=== PATIENT | female | born 1955 | race Caucasian/White ===

== ENCOUNTER 2022-09-25 06:47 | Day surgery (SDC) | payer MEDICARE, SELFPAY ==
[2022-09-20 14:07] VITALS: BMI 23.8
[2022-09-20 14:23] VITALS: BMI 23.8
--- NOTE | 2022-09-22 08:17 | MHC.SHP ---
Pre-Procedural Eval Section A Date of Service: 09/22/22 The patient is an INPATIENT: No Changes since office visit: No Cold of Flu in the past 2 weeks, No New Medical Problems, No Changes in Medication and No Patient answered all questions The History & Physical has been completed within 30 days and I have reviewed it.: Yes Section B Chief Complaint: Age-related nuclear cataract, left eye Allergies: Allergies Allergy/AdvReac Type Severity Reaction Status Date / Time acetaminophen Allergy Hypotension Verified 09/20/22 14:12 [From Tylenol-Codeine] codeine Allergy Hypotension Verified 09/20/22 14:12 [From Tylenol-Codeine] Plan Diagnosis/Plan: Unchanged I have reviewed the history and physical and performed a pertinent physical examination on my patient. No changes have occurred unless specified. Time Spent With Patient Time: Total time managing care of this patient today ____ minutes.
--- NOTE | 2022-09-22 09:26 | HO.ANESPROP2 ---
Documented by User: Hermelinda Fernando NP 09/22/22 09:26 HPI - Anesthesia Eval Consult details Narrative: 67yo F for Left Cataract Extraction IOL Insertion PCP cleared No previous cataract PMFSH Past Medical History Medical History Diabetes Endometriosis HTN (hypertension) Hyperlipidemia Murmur Patellar tendon rupture Pelvic mass in female Syncopal episodes Surgical History Surgical History History of bunionectomy History of carpal tunnel release History of hysterectomy History of left oophorectomy Hx of appendectomy Hx of exploratory laparotomy Social History Social History Are you a primary property caretaker to a significant other at home: No Do you presently have visiting nurse or other home services: No Patient Tobacco Use Status: Current everyday Tobacco user Tobacco use type: Cigarette Cigarettes Per Day: 5 Smoked in Last 30 Days: Yes Use of substances other than those prescribed or required for medical reasons: No Have you been hit, kicked, punched, or otherwise hurt by someone within the past year? If so, by whom?: No Advance Directives: No Advance Directives Information Provided: Yes Advance Directives on File: No Recently lost weight without trying: No Eating poorly because of decreased appetite: No Nutrition Risks: No Nutritional Risk Poor oral hygiene: No Meds Allergies Allergy/AdvReac Type Severity Reaction Status Date / Time acetaminophen Allergy Hypotension Verified 09/20/22 14:12 [From Tylenol-Codeine] codeine Allergy Hypotension Verified 09/20/22 14:12 [From Tylenol-Codeine] Home Medications Medication Instructions Recorded Confirmed Last Taken Type amlodipine 2.5 mg tablet 2.5 mg PO DAILY 09/20/22 09/20/22 09/24/22 History aspirin 81 mg chewable tablet 81 mg PO DAILY 09/20/22 09/20/22 09/24/22 History hydrochlorothiazide 25 mg tablet 25 mg PO DAILY 09/20/22 09/20/22 09/24/22 History losartan 50 mg tablet 50 mg PO DAILY 09/20/22 09/20/22 09/24/22 History metformin 500 mg tablet,extended 1,000 mg PO BID 09/20/22 09/20/22 09/23/22 History release 24 hr rosuvastatin 20 mg tablet 20 mg PO DAILY 09/20/22 09/20/22 09/24/22 History Exam Exam Date and Time: September 22, 2022925 Height,Weight and Vital Signs: Height 5 ft 7 in Weight 68.946 kg Assessment and Plan Assessment Anesthesia Assessment: Chart Reviewed Documented by User: Austin Strong MD 09/25/22 09:56 PMF Past Medical History Medical History Diabetes Endometriosis HTN (hypertension) Hyperlipidemia Murmur Patellar tendon rupture Pelvic mass in female Syncopal episodes Family History Family history of problems with anesthesia: No Surgical History Surgical History History of bunionectomy History of carpal tunnel release History of hysterectomy History of left oophorectomy Hx of appendectomy Hx of exploratory laparotomy History of Problems with Anesthesia: No Social History Social History Are you a primary property caretaker to a significant other at home: No Do you presently have visiting nurse or other home services: No Patient Tobacco Use Status: Current everyday Tobacco user Tobacco use type: Cigarette Cigarettes Per Day: 5 Smoked in Last 30 Days: Yes Use of substances other than those prescribed or required for medical reasons: No Have you been hit, kicked, punched, or otherwise hurt by someone within the past year? If so, by whom?: No Advance Directives: No Advance Directives Information Provided: Yes Advance Directives on File: No Recently lost weight without trying: No Eating poorly because of decreased appetite: No Nutrition Risks: No Nutritional Risk Poor oral hygiene: No Meds Allergies Allergy/AdvReac Type Severity Reaction Status Date / Time acetaminophen Allergy Hypotension Verified 09/20/22 14:12 [From Tylenol-Codeine] codeine Allergy Hypotension Verified 09/20/22 14:12 [From Tylenol-Codeine] Home Medications Medication Instructions Recorded Confirmed Last Taken Type amlodipine 2.5 mg tablet 2.5 mg PO DAILY 09/20/22 09/20/22 09/24/22 History aspirin 81 mg chewable tablet 81 mg PO DAILY 09/20/22 09/20/22 09/24/22 History hydrochlorothiazide 25 mg tablet 25 mg PO DAILY 09/20/22 09/20/22 09/24/22 History losartan 50 mg tablet 50 mg PO DAILY 09/20/22 09/20/22 09/24/22 History metformin 500 mg tablet,extended 1,000 mg PO BID 09/20/22 09/20/22 09/23/22 History release 24 hr rosuvastatin 20 mg tablet 20 mg PO DAILY 09/20/22 09/20/22 09/24/22 History Exam Airway Mallampati Class: II TM Dist: >3cm Neck ROM: Full Loose/Missing/Broken Teeth: Yes Heart: rrr+[id number] Lungs: cta b/l Assessment and Plan Assessment Anesthesia Assessment: Anesthesia Plan Discussed Final Anesthetic Review Family History of Problems with Anesthesia: No History of Problems with Anesthesia: No NPO: Yes ASA Class: III Final Preanesthetic Review: No Changes in Pt Med Stat, Meds/Allgs Chart Reviewed, Consent Obtained/Reviewed and Anes Risks/Benef Reviewed Patient Risk: Intermediate Procedure Risk: Low Assessment/Block/Sedation in SS: Assess/Block/Sedation-SS Anesthetic Plan Anesthetic Plan: MAC: and Agree w/ Assess. and Plan Disposition: Standard PACU
[2022-09-25 06:52] VITALS: BP 115/82; PULSE 79; RESP 20; TEMP 37.1; O2SAT 98
[2022-09-25] MEDS: Cyclopentolate 1 % Ophth Sol 2 ML DRPBTL 1 DROP EYE-LEFT ×3 (07:08→07:09)
[2022-09-25] MEDS: Tropicamide 1 % Ophth Sol 3 ML BTL 1 DROP EYE-LEFT ×3 (07:08→07:09)
[2022-09-25] MEDS: Tetracaine HCl/PF 0.5% Oph Sol 4 ML DROPS 1 DROP EYE-LEFT (07:08)
[2022-09-25] MEDS: Phenylephrine HCL 2.5% Oph SoL 2 ML BOTTLE 1 DROP EYE-LEFT ×3 (07:09)
[2022-09-25] MEDS: Ketorolac Tromethamine 0.5% Op 5 ML DROPS 1 DROP EYE-LEFT ×3 (07:09)
--- NOTE | 2022-09-25 08:55 | HO.PNOPHT ---
Ophthalmology Procedure Procedure Date of Service: 09/25/22 Ophthalmology Viscoelastic: Healpeg Etiennet Dual Pack Pro Ophthalmology Lenses: TECNIS [id number] (22.5) Procedure Notes: PREOPERATIVE DIAGNOSIS: Decreased visual acuity left eye secondary to cataract POSTOPERATIVE DIAGNOSIS: Same PROCEDURE: Left cataract extraction with intraocular lens insertion SURGEON: Salomon Whipple M.D. ANESTHESIA: Topical ESTIMATED BLOOD LOSS: None COMPLICATIONS: None After obtaining informed consent, the patient was brought to the operation room suite and placed in the supine position. After adequate sedation per anesthesia, topical drops of Tetracaine were given to the left eye. The eye was then prepped and draped in the usual sterile fashion. The operating room microscope was then positioned over the operative eye and a lid speculum placed. A paracentesis was created followed by instillation of MPF Lidocaine 1%. Viscoelastic was then instilled into the anterior chamber. A three plane incision was then created temporally, utilizing a 2.85 mm keratome. Capsulotomy forceps were then utilized to create a circular tear capsulotomy. Hydrodissection and hydrodelineation were carried out until adequate mobilization of the nucleus occurred. Phacoemulsification was then utilized to remove the dense central nucleus followed by removal of the cortical material utilizing the automated aspiration irrigation unit. Viscoat elastic was instilled into the posterior capsular bag followed by placement of a posterior chamber intraocular lens without difficulty. The residual Viscoat elastic was then removed utilizing the automated IA machine. The wound was check and found to be watertight. The patient tolerated the procedure well and the lid speculum was removed. Intracameral injection of Vigamox 0.1 mL followed by a subtenon injection of Kenalog-40 0.2 mL were administered. The patient will be seen in the a.m.
[2022-09-25 09:24] VITALS: BP 120/73; PULSE 74; RESP 16; TEMP 37.2; O2SAT 99
== END 2022-09-25 09:29 | disposition home or self-care (01) ==
PROVIDERS: PCP Nurse Practitioner Family; Visit Provider Ophthalmology
PROC: (CPT 66985; principal; 2022-09-25 09:20)
DX: H25.12 Age-related nuclear cataract, left eye (principal); H54.7 Unspecified visual loss; H18.413 Arcus senilis, bilateral; H11.153 Pinguecula, bilateral; I10 Essential (primary) hypertension; E11.9 Type 2 diabetes mellitus without complications; E78.00 Pure hypercholesterolemia, unspecified; M19.90 Unspecified osteoarthritis, unspecified site; Z79.84 Long term (current) use of oral hypoglycemic drugs; Z79.899 Other long term (current) drug therapy; Z88.8 Allergy status to other drugs, medicaments and biological substances; F17.210 Nicotine dependence, cigarettes, uncomplicated
CPT/HCPCS: 66984; J3301; V2632

== ENCOUNTER 2022-10-09 06:23 | Day surgery (SDC) | payer MEDICARE, SELFPAY ==
[2022-09-21 08:01] VITALS: BMI 23.8
--- NOTE | 2022-10-05 13:09 | MHC.SHP ---
Pre-Procedural Eval Section A Date of Service: 10/05/22 The patient is an INPATIENT: No Changes since office visit: No Cold of Flu in the past 2 weeks, No New Medical Problems, No Changes in Medication and No Patient answered all questions The History & Physical has been completed within 30 days and I have reviewed it.: Yes Section B Chief Complaint: Age-related nuclear cataract, right eye Allergies: Allergies Allergy/AdvReac Type Severity Reaction Status Date / Time acetaminophen Allergy Hypotension Verified 09/20/22 14:12 [From Tylenol-Codeine] codeine Allergy Hypotension Verified 09/20/22 14:12 [From Tylenol-Codeine] Plan Diagnosis/Plan: Unchanged I have reviewed the history and physical and performed a pertinent physical examination on my patient. No changes have occurred unless specified. Time Spent With Patient Time: Total time managing care of this patient today ____ minutes.
[2022-10-09 06:36] VITALS: BP 119/73; PULSE 84; RESP 16; TEMP 36.3; O2SAT 99
[2022-10-09] MEDS: Tetracaine HCl/PF 0.5% Oph Sol 4 ML DROPS 1 DROP EYE-RIGHT (06:47)
[2022-10-09] MEDS: Cyclopentolate 1 % Ophth Sol 2 ML DRPBTL 1 DROP EYE-RIGHT ×3 (06:48→07:05)
[2022-10-09] MEDS: Ketorolac Tromethamine 0.5% Op 5 ML DROPS 1 DROP EYE-RIGHT ×3 (06:52→07:09)
[2022-10-09] MEDS: Phenylephrine HCL 2.5% Oph SoL 2 ML BOTTLE 1 DROP EYE-RIGHT ×3 (06:54→07:11)
--- NOTE | 2022-10-09 08:02 | HO.PNOPHT ---
Ophthalmology Procedure Procedure Date of Service: 10/09/22 Ophthalmology Viscoelastic: Ladi Etiennet Dual Pack Pro Ophthalmology Lenses: TECNAHID [id number] (22) Procedure Notes: PREOPERATIVE DIAGNOSIS: Decreased visual acuity right eye secondary to cataract POSTOPERATIVE DIAGNOSIS: Same PROCEDURE: Right cataract extraction with intraocular lens insertion SURGEON: Salomon Whipple M.D. ANESTHESIA: Topical ESTIMATED BLOOD LOSS: None COMPLICATIONS: None After obtaining informed consent, the patient was brought to the operating room suite and placed in the supine position. After adequate sedation per anesthesia, topical drops of Tetracaine were given to the right eye. The eye was then prepped and draped in the usual sterile fashion. The operating room microscope was then positioned over the operative eye and a lid speculum placed. A paracentesis was created. Viscoelastic was then instilled into the anterior chamber. A three plane incision was then created temporally, utilizing a 2.85 mm keratome. Capsulotomy forceps were then utilized to create a circular tear capsulotomy. Hydrodissection and hydrodelineation were carried out until adequate mobilization of the nucleus occurred. Phacoemulsification was then utilized to remove the dense central nucleus followed by removal of the cortical material utilizing the automated aspiration irrigation unit. Viscoelastic was instilled into the posterior capsular bag followed by placement of a posterior chamber intraocular lens without difficulty. The residual Viscoelastic was then removed utilizing the automated IA machine. The wound was checked and found to be watertight. The patient tolerated the procedure well and the lid speculum was removed. Intracameral injection of Vigamox 0.1 mL followed by a subtenon injection of Kenalog-40 0.2 mL were administered. The patient will be seen in the a.m.
[2022-10-09 08:32] VITALS: BP 139/85; PULSE 85; RESP 18; TEMP 37; O2SAT 100
== END 2022-10-09 08:36 | disposition home or self-care (01) ==
PROVIDERS: PCP Nurse Practitioner Family; Visit Provider Ophthalmology
PROC: (CPT 66985; principal; 2022-10-09 08:10)
DX: H25.11 Age-related nuclear cataract, right eye (principal); H54.7 Unspecified visual loss; H18.413 Arcus senilis, bilateral; H11.153 Pinguecula, bilateral; H43.399 Other vitreous opacities, unspecified eye; I10 Essential (primary) hypertension; E11.9 Type 2 diabetes mellitus without complications; E78.00 Pure hypercholesterolemia, unspecified; M19.90 Unspecified osteoarthritis, unspecified site; Z79.84 Long term (current) use of oral hypoglycemic drugs; Z79.899 Other long term (current) drug therapy; Z88.8 Allergy status to other drugs, medicaments and biological substances; F17.210 Nicotine dependence, cigarettes, uncomplicated
CPT/HCPCS: 66984; J3301; V2632

== ENCOUNTER 2024-07-14 09:24 | Outpatient (REF) | payer MEDICARE, SELFPAY ==
[2024-07-14 09:30] VITALS: BP 145/82; PULSE 81; RESP 16; TEMP 36.3; O2SAT 99; BMI 22.3
--- OUTSIDE RECORDS SUMMARY | 2024-07-14 10:08 | XMS_ITS | Encounter Summary ---
Author Organization [employer] Address [address] [facility] [address] [place] [address] Care Team Providers Care Behavioral Health Case Manager Name Role Phone Adri Oliver Primary Care Provider Unavailable Jaelyn Kaufman Unavailable Unavailable Inactive/Transferred Primary Care Provider Unava ilable Encounter Details Date Type Department Care Team (Latest Contact Info) Description 04/19/2020 [facility]VERSION[facility] Dental, Provider, DDS Social History Tobacco Use Types Packs/Day Years Used Date Smoking Tobacco: Never Assessed Comments Unknown Sex and Gender Information Value Date Recorded Sex Assigned at Female 12/06/2022 11:41 AM EDT Legal Sex Female 5:35 PM EDT Gender Identity Female 12/06/2022 11:41 AM EDT Sexual Orientation Choose not to disclose 2022 8:25 AM EST documented as of this encounter Plan of Treatment Not on file documented as of this encounter Visit Diagnoses Not on filedocumented in this encounter Care Teams Behavioral Health Case Manager Relationship Specialty Start Date End Date Adri Oliver FNP PCP - General Family Medicine 08/06/22 04/20/24 Inactive/Transferred PCP - General 04/21/24 04/21/24 Jaelyn Kaufman Community Health Worker 08/07/22 documented as of this encounter
--- OUTSIDE RECORDS SUMMARY | 2024-07-14 10:08 | XMS_ITS | Encounter Summary ---
Author Organization [employer] Address [address] [facility] [address] [place] [address] Care Team Providers Care Dye House Vat Worker Name Role Phone Adri Oliver Primary Care Provider Unavailable Jaelyn Kaufman Unavailable Unavailable Inactive/Transferred Primary Care Provider Unava ilable Encounter Details Date Type Department Care Team (Latest Contact Info) Description 03/21/2019 [facility]VERSION[facility] Dental, Provider, DDS Social [...] on filedocumented in this encounter Care Teams Dye House Vat Worker Relationship Specialty Start Date End Date Adri Oliver FNP PCP - General Family Medicine 08/06/22 04/20/24 Inactive/Transferred PCP - General 04/21/24 04/21/24 Jaelyn Kaufman Community Health Worker 08/07/22 documented as of this encounter
--- OUTSIDE RECORDS SUMMARY | 2024-07-14 10:08 | XMS_ITS | Encounter Summary ---
Author Organization [employer] Address [address] [facility] [address] [place] [address] Care Team Providers Care County Agricultural Agent Name Role Phone Adri Oliver Primary Care Provider Unavailable Jaelyn Kaufman Unavailable Unavailable Inactive/Transferred Primary Care Provider Unava ilable Encounter Details Date Type Department Care Team (Latest Contact Info) Description 09/17/2018 [facility] CONVERSION[facility] Dental, Provider, DDS Social [...] on filedocumented in this encounter Care Teams County Agricultural Agent Relationship Specialty Start Date End Date Adri Oliver FNP PCP - General Family Medicine 08/06/22 04/20/24 Inactive/Transferred PCP - General 04/21/24 04/21/24 Jaelyn Kaufman Community Health Worker 08/07/22 documented as of this encounter
--- OUTSIDE RECORDS SUMMARY | 2024-07-14 10:08 | XMS_ITS | Encounter Summary ---
Author Organization [facility] Address [address] [place] [address] Phone Care Team Providers Care Clinical Specialist Name Role Phone Adri Oliver Primary Care Provider Encounter Details Date Type Department Care Team (Late st Contact Info) Description 05/09/2024 Documentation Only [facility] [address] [place] [address] Rachele Glass [place] [address] [place] [phone] Social History Tobacco Use Types Packs/Day Years Used Date Smoking Tobacco: Never Assessed Comments Unknown Sex and Gender Information Value Date Recorded Sex Assigned at Not on file Legal Sex Female 12:36 PM EST Gender Identity Not on file Sexual Orientation Not on file documented as of this encounter Plan of Treatment Upcoming Encounters Date Type Department Care Team (Late st Contact Info) Description 09/19/2024 1:30 PM EDT Office Visit [facility] [address] [place] [address] Monroe Sandoval DO [address] [place] [address] [place] [address] documented as of this encounter Visit Diagnoses Not on filedocumented in this encounter Care Teams Clinical Specialist Relationship Specialty Start Date End Date Adri Oliver FNP [address] [place], [place] [phone] PCP - General Nurse Practitioner 05/08/24 documented as of this encounter
--- OUTSIDE RECORDS SUMMARY | 2024-07-14 10:08 | XMS_ITS | Encounter Summary ---
Author Organization [employer] Address [address] [facility] [address] [place] [address] Care Team Providers Care Emr Trainer Name Role Phone Adri Oliver Primary Care Provider Unavailable Jaelyn Kaufman Unavailable Unavailable Inactive/Transferred Primary Care Provider Unava ilable Encounter Details Date Type Department Care Team (Latest Contact Info) Description 10/28/2021 Abstract [facility] Dental, Provider, DDS Social [...] on filedocumented in this encounter Care Teams Emr Trainer Relationship Specialty Start Date End Date Adri Oliver FNP PCP - General Family Medicine 08/06/22 04/20/24 Inactive/Transferred PCP - General 04/21/24 04/21/24 Jaelyn Kaufman Community Health Worker 08/07/22 documented as of this encounter
--- OUTSIDE RECORDS SUMMARY | 2024-07-14 10:08 | XMS_ITS | Encounter Summary ---
Author Organization [facility] Address [address] [place] [address] Phone Care Team Providers Care Photography Coordinator Name Role Phone Adri Oliver Primary Care Provider Encounter Details Date Type Department Care Team (Late st Contact Info) Description 05/08/2024 Documentation Only [facility] [address] [place] [address] Rachele Glass [place] [address] [place] [phone] Social History Tobacco Use Types Packs/Day Years [...] Visit [facility] [address] [place] [address] Monroe Sandoval DO [address] [place] [address] [place] [address] documented as of this encounter Visit Diagnoses Not on filedocumented in this encounter Care Teams Photography Coordinator Relationship Specialty Start Date End Date Adri Oliver FNP [address] [place], [place] [phone] PCP - General Nurse Practitioner 05/08/24 documented as of this encounter
--- OUTSIDE RECORDS SUMMARY | 2024-07-14 10:08 | XMS_ITS | Clinical Summary ---
Author Organization [facility] Address [address] [id number] Care Team Providers Care Green Building Engineer Name Role Phone Beny Menendez Primary Care Provider [phone] Allergies Active Allergy Reactions Criticality Noted Date Comments Codeine 12/23/2011 Shellfish Allergy 12/23/2011 Acetaminophen-Codeine 12/23/2011 Medications * This document contains information received from the source organization and may not represent a complete record from that organization. No known medications Active Problems No known active problems Family History Medical History Relation Name Comments Cancer - Breast Mother AGE LATE 50' S Relation Name Status Comments Mother Social History Tobacco Use Types Packs/Day Years Used Date Smoking Tobacco: Every Day Alcohol Use Standard Drinks/Week Comments Not Asked 0 (1 standard drink = 0.6 oz pur e alcohol) Comments No Sex and Gender Information Value Date Recorded Sex Assigned at Not on file Legal Sex Female 6:55 PM EDT Gender Identity Not on file Sexual Orientation Not on file Plan of Treatment Health Maintenance Due Date Last Done Comments Hepatitis C Screening 1955 DTaP/Tdap/Td (1 - Tdap) 1975 Pneumococcal 50+ years (1 of 1 - PCV) 2007 Zoster (Shingrix) (1 of 2) 2007 Mammogram/Breast Imaging 02/28/2013 012, 2011, 10/05/2009, Additional history exists Bone Density 2022 COVID-19 Vaccine ( - 2023- season) 2024 Influenza (#1) 2024 RSV (1 - 1-dose 75+ series) 02/15/2032 HPV Vaccine Aged Out No longer eligi ble based on patient's age to complete this topic Hep A Aged Out No longer eligi ble based on patient's age to complete this topic Hep B Aged Out No longer eligi ble based on patient's age to complete this topic Hib Aged Out No longer eligi ble based on patient's age to complete this topic Meningococcal ACWY Aged Out No longer eligible based on patient's age to complete this topic Pap Smear Discontinued Zoster (Zostavax) Discontinued Procedures * Due to [place] CIBDO law, this organization might not be sharing negative HIV tests. Procedure Name Priority Date/Time Associated Diagnosis Comments MAMMOGRAM SCREENING , BILATERAL FC Routine 02/29/2012 1:11 PM EDT Other screening mammogram from Last 3 Months or Most Recently Relevant to Health Maintenance Results * Due to [place] CIBDO law, this organization might not be sharing negative HIV tests. * MAMMOGRAM SCREENING , BILATERAL FC (02/29/2012 1:11 PM EDT) LETTER SENT [facility] [id number]) Anatomical Region Laterality Modality BREAST Bilateral Mammography 02/29/2012 4:28 PM EDT Narrative 02/29/2012 4:28 PM EDT EXAMINATION: SCREENING DIGITAL BILATERAL MAMMOGRAM February ??2011 TECHNIQUE: ??Craniocaudal and mediolateral oblique views are performed. This mammogram was interpreted with the assistance of a computer aided detection CAD device. FAMILY HISTORY: ??Mother COMPARISON: ??2005 2008 2009 2010 COMPOSITION: ??Heterogeneous elements decreasing sensitivity and accuracy, possibly obscuring visualization of small masses. FINDINGS: No suspicious dominant mass lesions, suspicious microcalcifications, or areas of unexplained architectural distortion are seen. IMPRESSION: No evidence of malignancy. RESULTS COMMUNICATED TO PATIENT: In a letter A letter A in lay language describing the results will follow this report. The FDA, in accordance with the Mammography Quality Standards Act, requires that this be sent to the patient by the interpreting radiologist. BI-RADS Category 1:Negative *#ANB#* Procedure Note Enedelia Heredia MD - 02/29/2012 EXAMINATION: SCREENING DIGITAL BILATERAL MAMMOGRAM February 29 2012 TECHNIQUE: Craniocaudal and mediolateral oblique views are performed. This mammogram was interpreted with the assistance of a computer aided detection CAD device. FAMILY HISTORY: Mother COMPARISON: 2005 2008 2009 2010 COMPOSITION: Heterogeneous elements decreasing sensitivity and accuracy, possibly obscuring visualization of small masses. FINDINGS: No suspicious dominant mass lesions, suspicious microcalcifications, or areas of unexplained architectural distortion are seen. IMPRESSION: No evidence of malignancy. RESULTS COMMUNICATED TO PATIENT: In a letter A letter A in lay language describing the results will follow this report. The FDA, in accordance with the Mammography Quality Standards Act, requires that this be sent to the patient by the interpreting radiologist. BI-RADS Category 1:Negative *#ANB#* Beny Katerin Shon [facility] [place] Final Resul t from Last 3 Months or Most Recently Relevant to Health Maintenance Insurance [employer] Care Teams Green Building Engineer Relationship Specialty Start Date End Date Beny Menendez [facility] [address] [facility] [address] [place], [place] [phone] PCP - General Internal Medicine 11/03/11
--- OUTSIDE RECORDS SUMMARY | 2024-07-14 10:08 | XMS_ITS | Encounter Summary ---
Author Organization [employer] Address [address] [facility] [address] [place] [address] Care Team Providers Care Credit Portfolio Manager Name Role Phone Adri Oliver Primary Care Provider Unavailable Jaelyn Kaufman Unavailable Unavailable Inactive/Transferred Primary Care Provider Unava ilable Encounter Details Date Type Department Care Team (Latest Contact Info) Description 10/18/2020 Abstract [facility] CONVERSIONS Dental, Provider, DDS Social [...] on filedocumented in this encounter Care Teams Credit Portfolio Manager Relationship Specialty Start Date End Date Adri Oliver FNP PCP - General Family Medicine 08/06/22 04/20/24 Inactive/Transferred PCP - General 04/21/24 04/21/24 Jaelyn Kaufman Community Health Worker 08/07/22 documented as of this encounter
--- OUTSIDE RECORDS SUMMARY | 2024-07-14 10:08 | XMS_ITS | Clinical Summary ---
Author Organization [employer] Address [address] [place] [address] [address] [place] [address] Care Team Providers Care Partner Name Role Phone Jaelyn Kaufman Unavailable Unavailable Allergies Active Allergy Reactions Criticality Noted Date Comments Acetaminophen-Codeine High 12/23/2011 Low blood pressure Lisinopril Cough Low 03/23/2022 Other reaction(s): Unknown Other Low 06/08/2023 Shellfish Allergy Low 03/23/2022 Other reaction(s): Unknown Other reaction(s): severe N&V Shellfish-Derived Products Low 3 vomiting Medications Lancets 30G misc Use one lancet SQ To test blood sugar twice daily for 50 Active aspirin 81 MG chewable tablet Chew 1 tablet in the morning. Active glucose blood (FREESTYLE LITE) test strip USE TO test blood sugar TWICE A DAY directed for 25 Active Blood Glucose Monitoring Suppl (True Metrix Meter) w/Device kit as directed 02/25/20 22 Active metFORMIN XR (Glucophage-XR) 500 MG 24 hr tabletIndications: Controlled type 2 diabetes mellitus without complication, without long-term current use of insulin ([facility]) TAKE 2 TABLETS BY MOUTH TWICE DAILY 360 tablet 3 05/16/19 24 Active Additional Information Patient taking differently: 500 mgOralDaily with evening meal, Reported on 06/22/2023 losartan (Cozaar) 50 MG tabletIndications: Essential (primary) hypertension TAKE 1 TABLET BY MOUTH ONCE DAILY 90 tablet 3 08/21/19 24 Active rosuvastatin (Crestor) 20 MG tabletIndications: Mixed hyperlipidemia Take 1 tablet (20 mg) by mouth Once per day. 90 tablet 3 10/03/19 24 Active cyanocobalamin (Vitamin B-12) 500 MCG tabletIndications: Vitamin B 12 deficiency Take 1 tablet (500 mcg) by mouth Once per day. 30 tablet 11 12/24/19 24 025 Active Active Problems Problem Noted Date Diagnosed Date Vitamin B 12 deficiency 06/22/2023 Overview (10/03/2023): Low normal vit B 12 at 344 MCV mildly elevated at 103 Supplementing 1000 mcg daily S/P complete hysterectomy 12/06/2022 Aortic calcification 12/06/2022 Overview (06/22/2023): Last echo 09/2022 (mild aortic valve appears mildly calcified). Last LDL at 104 (05/29/23) Palpitations 09/18/2022 Neuropathy of both feet 08/09/2022 Overview (08/09/2022): No sensation in either foot going up to the mid anterior swift b/l Cautioned about walking bear foot Nightly foot checks No followed by podiatry Other specified diabetes jemal litus with hyperglycemia, without long-term current use of insulin 03/23/2022 Overview (10/03/2023): Well controlled w/ A1c @ 5.9 on 500mg metformin daily Hyperlipidemia 03/23/2022 Overview (10/03/2023): Taking rosuvastatin 20mg daily From 09/2023: Cholesterol, Total 224 High Triglycerides 176 High HDL Cholesterol 65 LDL Chol Calc (NIH) 128 High Chol/HDLC Ratio 3.4 Non-HDL Cholesterol 159 Insomnia 03/23/2022 Essential hypertension 03/23/2022 Assessment & Plan (12/06/2022 11:37 AM EDT): Only taking losartan, does not wish to take other medications. Current BP 124/82. She self stopped other medications related to her being dizzy. Elevated liver enzymes 03/23/2022 Hemochromatosis carrier 03/23/2022 Primary insomnia 03/23/2022 Mixed hyperlipidemia 03/23/2022 Subclinical hypothyroidism 03/23/2022 Microalbuminuria 03/23/2022 Overview (06/22/2023): Last UACR 110.2 from 05/29/23 Abnormal mammogram of right breast 03/23/2022 Nonalcoholic hepatosteatosis 03/23/2022 Tobacco abuse 03/23/2022 Resolved Problems Problem Noted Date Diagnosed Date Resolved Date Pelvic mass in female 03/23/20222021 Overview (05/04/2022): S/p Laparotomy and left Oophorectomy 04/19/22; found to be a benign left ovarian fibroma Encounters Date Type Department Care Team Description 04/15/2024 Orders Only [facility] [address] [place] [address] Adri Oliver FNP from Last 3 Months Immunizations Name Administration Dates Next Due Influenza High-dose Quadriva lent Preservative Free 02/24/2022 Influenza Injectable Quadriv alant Preservative Free IIV4 MDCK 02/26/2018 Influenza Quadrivalent Adjuvanted 02/23/2023 Influenza injectable quadriv alent preservative free 02/12/2019 Influenza, IIV3, injectable 02/24/2022,1 ,02/06/2020,2018,02/26/2018 Moderna Covid-19 Vaccine 12+ 09/16/2020,08/20/19 21 TD (adult), 2 Lf tetanus tox oid, preservative free, adsorbed 11/05/2007 Tdap 07/06/2017 Zoster, Recombinant 07/14/2020,04/08/2020 Social History Tobacco Use Types Packs/Day Years Used Date Smoking Tobacco: Every Day Cigarettes Smokeless Tobacco: Never Tobacco Cessation:Ready to Q uit: Not Asked; Counseling Given: Not Answered Alcohol Use Standard Drinks/Week Comments Yes 0 (1 standard drink = 0.6 oz pur e alcohol) Overall Financial Resource Strain (CARDIA) Answe r Date Recorded How hard is it for you to pa y for the very basics like food, housing, medical care, and heating? Patient declined 08/07/2022 Alcohol Answer Date Recorded Q1: How often do you have a drink containing alc ohol? 98 08/07/2022 Q2: How many drinks containi ng alcohol do you have on a typical day when you are drinking? 98 08/07/2022 Q3: How often do you have six or more drinks on one occasion? 98 08/07/2022 Housing Stability Answer Date Recorded What is your housing situation today? I have jatin austin 10/03/[address] you li ve. Do you have problems with any of the following? None of the above 10/03/2023 Food Insecurity Answer Date Recorded Within the past 12 months, y ou worried that your food would run out before you got money to buy more: Never True 10/03/2023 Within the past 12 months,th e food you bought just didn't last and you didn't have enough money to get more: Never True Transportation Answer Date Recorded In the past 12 months, has l ack of transportation kept you from medical appts, meetings, work or from getting things needed for daily living? No 10/03/2023 Intimate Partner Violence Answer Date R ecorded Within the last year, have y ou been afraid of your partner or ex-partner? 98 08/07/2022 Within the last year, have y ou been humiliated or emotionally abused in other ways by your partner or ex-partner? 98 Within the last year, have y ou been kicked, hit, slapped, or otherwise physically hurt by your partner or ex-partner? 98 08/07/2022 Within the last year, have y ou been raped or forced to have any kind of sexual activity by your partner or ex-partner? 98 08/07/2022 Utilities Answer Date Recorded In the past 12 months, has t he [employer], gas, oil or water Alai threatened to shut off services in your home? No 10/03/2023 Depression Answer Date Recorded Patient Health Questionnaire-2 Score 0 06/22/2023 Comments Unknown Sex and Gender Information Value Date Recorded Sex Assigned at Female 12/06/2022 11:41 AM EDT Legal Sex Female 5:35 PM EDT Gender Identity Female 12/06/2022 11:41 AM EDT Sexual Orientation Choose not to disclose 2022 8:25 AM EST Occupation Industry Job Start Date Job End Date Retired Not on file Not on file Not on file Last Filed Vital Signs Vital Sign Reading Time Taken Comments Blood Pressure 126/80 10/03/2023 10:06 AM EDT Pulse 80 10/03/2023 10:06 AM EDT Temperature 36.2 ??C (97.1 ??F) 10/03/2023 10:06 AM E DT Respiratory Rate 16 10/03/2023 10:06 AM EDT Oxygen Saturation 97% 10/03/2023 10:06 AM EDT Inhaled Oxygen Concentration - - Weight 66.7 kg (147 lb) 10/03/2023 10:06 AM EDT Height 170.2 cm (5' 7 ) 10/03/2023 10:06 AM EDT Body Mass Index 23.02 10/03/2023 10:06 AM EDT Plan of Treatment Health Maintenance Due Date Last Done Comments CT Colonography 1957 FIT 1957 FOBT 1957 Sigmoidoscopy 1957 Eye Exam 1967 Alcohol/Substance Use Screening 1969 Hepatitis A Vaccines (1 of 2 - Risk 2-dose series) 02/15/1976 Pneumococcal Vaccine: 50+ Years (1 of 2 - PCV) 02/15/1976 Colonoscopy 05/28/2016 05/28/2006, 05/28/2006 Hepatitis B Vaccines (1 of 3 - Risk 3-dose series) 2017 RSV Patients and Patients Aged 60 years or older (1 - Risk 60-74 years 1-dose series) 2017 Dental X-Ray: Full Mouth 08/05/2019 08/03/2016 Dental Oral Exam 04/30/2022 10/28/2021, , 10/18/2020, Additional history exists Dental Prophylaxis 11/23/2022 05/25/2022, 0 10/28/2021, 04/22/2021, Additional history exists Dental X-Ray: Bitewings 05/26/2023 05/25/19 23, 04/22/2021, 04/19/2020, Additional history exists COVID-19 Vaccine ( season) 2024 09/16/2020, 08/19/2020 Diabetes: Hemoglobin A1C 04/04/2024 024, 06/22/2023, 12/06/2022, Additional history exists Diabetes: Urine Protein Screening 05/29/2024 05/29/2023, 09/12/2022, 07/27/2021, Additional history exists Depression Screening 06/22/2024 06/22/2023, 06/22/19 Diabetes: Foot Exam 06/22/2024 06/22/2023, 06/22/2023, 06/22/2023, Additional history exists Tobacco Screening 06/22/2024 06/22/2023 SDOH Screening 10/02/2024 10/03/2023 Lipid Panel 12/04/2024 12/05/2023, 05/2 05/2023, 05/29/2023, Additional history exists Mammogram 06/21/2025 06/21/2023, 12/2022, 05/04/2021, Additional history exists Colorectal Cancer Screening 08/27/2025 FIT DNA/Cologuard 08/27/2025 08/27/2022 DTaP/Tdap/Td Vaccines (2 - Td or Tdap) 07/07/2027 07/06/2017, 11/05/2007 Hepatitis C Screening Completed 10/02/2018 Zoster Vaccines Completed 07/14/2020, 04/08/2020 Influenza Vaccine Completed 02/27/2024, , 02/23/2023, Additional history exists HIB Vaccines Aged Out No longer eligi ble based on patient's age to complete this topic HPV Vaccines Aged Out No longer eligi ble based on patient's age to complete this topic IPV Vaccines Aged Out No longer eligi ble based on patient's age to complete this topic Meningococcal Vaccine Aged Out No candis angela eligible based on patient's age to complete this topic RSV under 20 months Aged Out No longe r eligible based on patient's age to complete this topic Rotavirus Vaccines Aged Out No longer eligible based on patient's age to complete this topic Procedures Procedure Name Priority Date/Time Associated Diagnosis Comments CT CHEST LDCT LUNG PROGRAM BASELINE Routine 04/15/2024 10:06 AM EST LIPID PANEL, STANDARD Routine 12/05/2023 9:49 AM EDT Mixed hyperlipidemia POCT GLYCOSYLATED HEMOGLOBIN (HGB A1C) Routine 10/03/2023 10:16 AM EDT Other specified diabetes mellitus with hyperglycemia, without long-term current use of insulin (CMS/HCC) BI MAMMOGRAM SCREENING TOMOSYNTHESIS BILATERAL Routine 06/21/2023 10:07 AM EST MICROALBUMIN, RANDOM (W CREAT) Routine 05/29/2023 8:51 AM EST Controlled type 2 diabetes mellitus without complication, without long-term current use of insulin (CMS/HCC) Full PROPHYLAXIS - ADULT Routine 05/25/2022 8:30 AM EST BITEWINGS - 4 RADIOGRAPHIC IMAGES Routine 05/25/2022 8:30 AM EST PERIODIC ORAL EVALUATION - ESTABLISHED PATIENT Routine 10/28/2021 12:00 AM EDT HEPATITIS C ANTIBODY (EXTERNAL RESULTS ONLY) Routine 10/02/2018 2:11 PM EDT INTRAORAL - COMPLETE SERIES OF RADIOGRAPHIC IMAGES Routine 08/03/2016 12:00 AM EDT HM COLONOSCOPY Routine 05/28/2006 from Last 3 Months or Most Recently Relevant to Health Maintenance Results * CT Chest LDCT Lung Program Baseline (04/15/2024 10:06 AM EST) Anatomical Region Laterality Modality Body, Pelvis, Abdomen Computed T omography 04/15/2024 10:0 6 AM EST Narrative 04/15/2024 3:[address] Chest LDCT Lung Program Baseline Reason: Other:; LDCT,LUNG CANCER SCREENING PROGRAM, CURRENT SMOKER, 27, PACK YEAR HX; Clinical Question(s): Other:; Special Instructions: BOOK AT [address] ??BOOK AFTER 04 08 2024 ??NO CHEST CT IN THE LAST 12 MONTHS ??NO LUNG CANCER OR SIGNS AND SYMPTOMS OF LUNG CANCER Visit type: Baseline TECHNIQUE: Low-dose helical CT of the chest without IV contrast (Adult Lung Cancer Screening) protocol was performed. Coronal reformats were obtained. Weight-based protocol using automatic tube modulation was used to optimize exposure parameters. CTDIvol Body: 1.20 mGy, ??DLP Body: 46 mGy*cm. COMPARISON: None FINDINGS: LUNG NODULES (measured on thin axial series 5): RIGHT lun mm right apical nodule (49) Right lower lobe peripheral micronodule (198) LEFT lung: No suspicious nodules. OTHER FINDINGS: Svp Programmatic Tv view findings, lines and tubes: None. Trachea and airways: Patent without evidence of tracheal or endobronchial lesion. Lungs and pleura: Clear lungs. Minimal right apical scarring. No effusion or pneumothorax. Mediastinum and keith: No mass or hematoma. No mediastinal or axillary lymphadenopathy. No esophageal abnormality. Heart: Heart is normal in size. No pericardial effusion. Moderate-severe coronary artery calcification. Aorta: Mild vascular calcification. Ascending thoracic aorta mildly dilated measuring 4.1 cm Pulmonary arteries: Normal caliber. Chest wall soft tissues: No acute abnormality. Diaphragm: Intact. Upper abdomen: No significant abnormality. Bones: No acute abnormality. Scattered degenerative changes of the visualized spine are seen. IMPRESSION: 1. LungRad Category: 2 Benign Appearance or Behavior. Nodules with a very low likelihood of becoming a clinically active cancer due to size or lack of growth. Continue annual screening with LDCT in 12 months. 2. Atherosclerotic disease, with mildly dilated ascending thoracic aorta measuring up to 4.1 cm Categorization based on Lung-RADS 2022 criteria. [email or web address] WSN: [id number] Ordering Physician: Adri Oliver Dictated By: ?Lester Ross MD Dictated Date/Time: ?04/15/24 3:37 pm Reviewed By: ?Lester Ross MD Signed By: ? Lester Ross MD Signed Date/Time: ? 04/15/24 3:37 pm Transcribed By: ? CSB Transcribed Date/Time: ?04/15/24 3:28 pm Procedure Note Donotuseinterpreter, Image - 04/15/2024 CT Chest LDCT Lung Program Baseline Reason: Other:; LDCT,LUNG CANCER SCREENING PROGRAM, CURRENT SMOKER, 27,PACK YEAR HX; Clinical Question(s): Other:; Special Instructions: BOOK AT [address] BOOK AFTER [address] IN THE LAST 12 MONTHS NOLUNG CANCER OR SIGNS AND SYMPTOMS OF LUNG CANCER Visit type: Baseline TECHNIQUE: Low-dose helical CT of the chest without IV contrast (AdultLung Cancer Screening) protocol was performed. Coronal reformats wereobtained. Weight-based protocol using automatic tube modulation was used tooptimize exposure parameters. CTDIvol Body: 1.20 mGy, DLP Body: 46 mGy*cm. COMPARISON: None FINDINGS: LUNG NODULES (measured on thin axial series 5): RIGHT lun mm right apical nodule (49) Right lower lobe peripheral micronodule (198) LEFT lung: No suspicious nodules. OTHER FINDINGS: Svp Programmatic Tv view findings, lines and tubes: None. Trachea and airways: Patent without evidence of tracheal orendobronchial lesion. Lungs and pleura: Clear lungs. Minimal right apical scarring. No effusionor pneumothorax. Mediastinum and keith: No mass or hematoma. No mediastinal or axillary lymphadenopathy. No esophageal abnormality. Heart: Heart is normal in size. No pericardial effusion. Moderate-severe coronary artery calcification. Aorta: Mild vascular calcification. Ascending thoracic aorta mildlydilated measuring 4.1 cm Pulmonary arteries: Normal caliber. Chest wall soft tissues: No acute abnormality. Diaphragm: Intact. Upper abdomen: No significant abnormality. Bones: No acute abnormality. Scattered degenerative changes of thevisualized spine are seen. IMPRESSION: 1. LungRad Category: 2 Benign Appearance or Behavior. Nodules with a very low likelihood ofbecoming a clinically active cancer due to size or lack of growth. Continue annual screening with LDCT in 12 months. 2. Atherosclerotic disease, with mildly dilated ascending thoracic aorta measuring up to 4.1 cm Categorization based on Lung-RADS 2022 criteria. [email or web address] WSN: [id number] Ordering Physician: Adri Oliver Dictated By: Lester Ross MD Dictated Date/Time: 04/15/24 3:37 pm Reviewed By: Lester Ross MD Signed By: Lester Ross MD Signed Date/Time: 04/15/24 3:37 pm Transcribed By: ANNETTE Transcribed Date/Time: 04/15/24 3:28 pm Adri RAPHAEL IMG CT PROCEDURES Karon l Result * (ABNORMAL) Lipid Panel, Standard (12/05/2023 9:49 AM EDT) Cholesterol, Total 361(H) 100 - 199 mg/dL [facility] Triglycerides 269(H) 0 - 149 mg/dL [facility] HDL Cholesterol 72 >39 mg/dL [facility] VLDL Cholesterol Bernard 55(H) 5 - 40 mg/dL [facility] LDL Chol Calc (NIH) 234(H) 0 - 99 mg/dL [facility] LDL Calc Comment: Comment [facility] Comment: Consider evaluating for Familial Hypercholesterolemia(FH), if clinically indicated. Blood Venous blood specimen / Unknown 12/05/2023 9:49 AM EDT 12/05/2023 Narrative [facility] - 12/06/2023 12:05 AM EDT Performed at: ??01 - [facility] [address] ??[id number] Ticketing Clerk: Sofya Valverde MD, Phone: ??[phone] Adri RAPHAEL LAB BLOOD ORDERABLES F inal Result [facility] * POCT glycosylated hemoglobin (Hgb A1c) (10/03/2023 10:16 AM EDT) Hemoglobin A1C 5.9 4.0 - 6.0 % Blood Capillary blood specimen / Unknown 10/03/2023 10:16 AM EDT Adri Milton-Schon PELLET PREPARATION OPERATOR POINT OF CARE TEST ENT ER/EDIT ORDERABLES Final Result * BI Mammogram Screening Tomosynthesis Bilateral (06/21/2023 10:07 AM EST) Anatomical Region Laterality Modality Breast Bilateral Mammography 06/21/2023 10:0 7 AM EST Narrative 06/21/2023 12:03 PM EST PROCEDURE: MM Digital Mammo Screening INDICATION: Screening for breast cancer. No known palpable abnormalities. COMPARISON: 06/14/2022 and multiple prior studies. TECHNIQUE: Full-field digital CC and MLO 3D tomosynthesis images of both breasts were acquired. Computer-aided detection (CAD) was utilized in the interpretation of this study. DENSITY: The breast tissue is heterogeneously dense, which may obscure masses. FINDINGS: No suspicious masses, suspicious microcalcifications, or areas of architectural distortion are seen in either breast to suggest malignancy. Benign-appearing calcifications are again seen in both breasts. IMPRESSION: No mammographic evidence of malignancy. RECOMMENDATION: Annual mammographic screening BI-RADS: 2 (Benign) Lay letter mailed to patient WSN: [id number] Ordering Physician: Adri Oliver Dictated By: ?Ana Luisa Singh MD Dictated Date/Time: ?06/21/23 12:00 pm Reviewed By: ?Ana Luisa Singh MD Signed By: ? Ana Luisa Singh MD Signed Date/Time: ? 06/21/23 12:00 pm Transcribed By: ? CSB Warehouse Helper Date/Time: ? 06/21/23 11:57 am Birads: Procedure Note Donmaggie, Image - 06/21/2023 PROCEDURE: MM Digital Mammo Screening INDICATION: Screening for breast cancer. No known palpableabnormalities. COMPARISON: 06/14/2022 and multiple prior studies. TECHNIQUE: Full-field digital CC and MLO 3D tomosynthesis images of bothbreasts were acquired. Computer-aided detection (CAD) was utilized in theinterpretation of this study. DENSITY: The breast tissue is heterogeneously dense, which may obscuremasses. FINDINGS: No suspicious masses, suspicious microcalcifications, or areasof architectural distortion are seen in either breast to suggestmalignancy. Benign-appearing calcifications are again seen in both breasts. IMPRESSION: No mammographic evidence of malignancy. RECOMMENDATION: Annual mammographic screening BI-RADS: 2 (Benign) Lay letter mailed to patient WSN: [id number] Ordering Physician: Adri Oliver Dictated By: Ana Luisa Singh MD Dictated Date/Time: 06/21/23 12:00 pm Reviewed By: Ana Luisa Singh MD Signed By: Ana Luisa Singh MD Signed Date/Time: 06/21/23 12:00 pm Transcribed By: ANNETTE Warehouse Helper Date/Time: 06/21/23 11:57 am Birads: Adri Oliver [facility] IMG BI PROCEDURES Karon l Result * (ABNORMAL) Microalbumin, Random Urine w/Creatinine (05/29/2023 8:51 AM EST) Micro-Albumin 32.0(H) (<20) MG/L [facility] Comment: The urine microalbumin test is designed to monitor renal function. When screening for Bence Peñaloza proteinuria, urine electrophoresis is recommended. Malb/Creat Ratio 29.3(H) (0-20) MG/GM [facility] Urine Creat For Micro Albumin 110.2 MG/DL [facility] Comment: Testing performed or reported by [facility], a Service of [facility], [address] [place] [address] Maldonado Read MD, Pest Control Service Representative [facility]# [id number] Urine 05/29/2023 8:51 AM EST 05/29/2023 9:29 AM EST Adri Oliver [facility] URINE ORDERABLES F inal Result [facility] [address] [place] [address] * Hepatitis C Antibody (10/02/2018 2:11 PM EDT) Hepatitis C Antibody Nonreactive Blood 10/02/2018 2:11 PM EDT Historical Provider POINT OF CARE TEST ENTER/ EDIT ORDERABLES Final Result * Hm Colonoscopy (05/28/2006) Colonoscopy Normal recall 10 years Historical Provider HEALTH MAINTENANCE Final Result from Last 3 Months or Most Recently Relevant to Health Maintenance Insurance MEDICARE [facility] MEDEX CARE Care Teams Partner Relationship Specialty Start Date End Date Jaelyn Kaufman Community Health Worker 08/07/22
--- OUTSIDE RECORDS SUMMARY | 2024-07-14 10:09 | XMS_ITS | Encounter Summary ---
Author Organization [employer] Address [address] [place] [address] Care Team Providers Care Admitting Counselor Name Role Phone Adri Oliver Primary Care Provider Unavailable Jaelyn Kaufman Unavailable Unavailable Inactive/Transferred Primary Care Provider Unava ilable Encounter Details Date Type Department Care Team (Late st Contact Info) Description 09/15/2022 Abstract Debbie [facility] [address] [place] [address] Adri Oliver FNP Social History Tobacco Use Types Packs/Day Years Used Date Smoking Tobacco: Every Day Cigarettes Smokeless Tobacco: Never Alcohol Use Standard Drinks/Week Comments Yes 0 [...] more drinks on one occasion? 98 08/07/2022 Intimate Partner Violence Answer Date R ecorded [...] by your partner or ex-partner? 98 08/07/2022 Comments Unknown Sex and Gender Information Value Date Recorded Sex Assigned at Female 12/06/2022 11:41 AM EDT Legal Sex Female 5:35 PM EDT Gender Identity Female 12/06/2022 11:41 AM EDT Sexual Orientation Choose not to disclose 2022 8:25 AM EST COVID-19 Exposure Response Date Recorded In the last 10 days, have yo u been in contact with someone who was confirmed or suspected to have Coronavirus/COVID-19? No / Unsure 09/18/2022 2:18 PM EDT documented as of this encounter Plan of Treatment Pending Results Name Type Priority Associated Diagnoses Date /Time Hepatitis C Antibody Point of Care Testing Routine 10/02/2018 2:06 PM EDT documented as of this encounter Visit Diagnoses Not on filedocumented in this encounter Care Teams Admitting Counselor Relationship Specialty Start Date End Date Adri Oilver FNP PCP - General Family Medicine 08/06/22 04/20/24 Inactive/Transferred PCP - General 04/21/24 04/21/24 Jaelyn Kaufman Community Health Worker 08/07/22 documented as of this encounter
--- OUTSIDE RECORDS SUMMARY | 2024-07-14 10:09 | XMS_ITS | Encounter Summary ---
Author Organization [employer] Address [address] [place] [address] Care Team Providers Care Vaccines Solutions Specialist Name Role Phone Adri Oliver Primary Care Provider Unavailable Jaelyn Kaufman Unavailable Unavailable Inactive/Transferred Primary Care Provider Unava ilable Encounter Details Date Type Department Care Team (Late st Contact Info) Description 09/15/2022 Abstract Debbie [facility] [address] [place] [address] Adri Oliver FNP Social History Tobacco Use [...] on file documented as of this encounter Procedures Procedure Name Priority Date/Time Associated Diagnosis Comments HEPATITIS C ANTIBODY (EXTERNAL RESULTS ONLY) Routine 10/02/2018 2:11 PM EDT documented in this encounter Results * Hepatitis C Antibody (10/02/2018 2:11 PM EDT) Hepatitis C Antibody Nonreactive Blood 10/02/2018 2:11 PM EDT Historical Provider POINT OF CARE TEST ENTER/ EDIT ORDERABLES Final Result documented in this encounter Visit Diagnoses Not on filedocumented in this encounter Care Teams [employer]ines [employer] Specialist Relationship Specialty Start Date End Date Adri Oliver FNP PCP - General Family Medicine 08/06/22 04/20/24 Inactive/Transferred PCP - General 04/21/24 04/21/24 Jaelyn Kaufman Community Health Worker 08/07/22 documented as of this encounter
--- OUTSIDE RECORDS SUMMARY | 2024-07-14 10:09 | XMS_ITS | Clinical Summary ---
Author Organization [facility] Address [address] [place] [address] Phone Care Team Providers Care Civil Lawyer Name Role Phone Adri Oliver Primary Care Provider Encounters Date Type Department Care Team Description 05/09/2024 Documentation Only [facility] [address] [place] [phone] Rachele Glass MA 05/08/2024 Telephone [facility] [address] [place] [phone] Rachele Glass MA 05/08/2024 Documentation Only [facility] [address] [place] [phone] Rachele Glass MA from Last 3 Months Social History Tobacco Use Types Packs/Day Years Used Date Smoking Tobacco: Never Assessed Comments Unknown Sex and Gender Information Value Date Recorded Sex Assigned at Not on file Legal Sex Female 12:36 PM EST Gender Identity Not on file Sexual Orientation Not on file Plan of Treatment Upcoming Encounters Date Type Department Care Team (Late st Contact Info) Description 09/19/2024 1:30 PM EDT Office Visit [facility] [address] [place] [phone] Monroe Sandoval [address] [place] [address] Health Maintenance Due Date Last Done Comments Breast Cancer Screening 1955 Pneumococcal Vaccine: 65+ Ye ars (1 of 2 - PCV) 1963 Colorectal Cancer Screening: Annual FOBT 2006 Colorectal Cancer Screening: Colonoscopy 2006 Colorectal Cancer Screening: Sigmoidoscopy 2006 Hepatitis B Vaccine (1 of 3 - Risk 3-dose series) 2017 Influenza Vaccine (#1) 2024 , 02/12/2019, 02/26/2018 Diabetes: Hemoglobin A1C 05/08/2024 10/03/2023 Diabetes: Ophthalmology Exam 05/08/2024, 02/26/2012, 12/23/2011 Diabetes: Pedal Pulse Checked 05/08/2024 Diabetes: Sensory Foot Exam 05/08/2024 Diabetes: Visual Foot Exam 05/08/2024 Insurance MEDICARE [facility] Care Teams Civil Lawyer Relationship Specialty Start Date End Date Adri Oliver FNP [address] [place] [address] PCP - General Nurse Practitioner 05/08/24
== END 2024-07-14 09:25 | disposition home or self-care (01) ==
LOC: HO.MS 09:24
PROVIDERS: Visit Provider Ophthalmology
PROC: (CPT 66821; principal; 2024-07-14 12:30)
DX: H26.491 Other secondary cataract, right eye (principal)
CPT/HCPCS: 66821